=== PATIENT | female | born 1930 | race Caucasian/White ===

== ENCOUNTER → 2016-11-19 | Outpatient (CLI) | payer OTHER, MEDICARE | LOC: MMPC 09:00 | PROVIDERS: ATTEND Nurse Practitioner Family | DX: E11.9 Type 2 diabetes mellitus without complications (principal); E78.5 Hyperlipidemia, unspecified; I10 Essential (primary) hypertension | CPT/HCPCS: 99214; G0463 ==

== ENCOUNTER → 2016-11-23 | Outpatient (CLI) | payer OTHER, MEDICARE ==
[2016-11-23 13:01] LABS: HEMATOCRIT 44.7 % (37.0-47.0); HEMOGLOBIN 14.1 g/dL (12.0-16.0); MEAN CORPUSCULAR HEMOGLOBIN 28.1 PG (27-31); MEAN CORPUSCULAR HGB CONC 31.5 g/dL (33-37); MEAN CORPUSCULAR VOLUME 89.2 FL (81-99); MEAN PLATELET VOLUME 9.3 FL (7.4-12.2); RED BLOOD COUNT 5.01 10^6/uL (4.20-5.40)
[2016-11-23 13:03] LABS: BUN/CREATININE RATIO 26.25 (6-20); CALCIUM 9.8 mg/dL (8.7-10.7); CHOL/HDL RATIO 2.21 RATIO (0-4.0); LDL CHOLESTEROL,CALCULATED 55.8 mg/dL; SERUM ALBUMIN 3.8 g/dL (3.5-4.8)
== END ==
LOC: LAB 08:24
PROVIDERS: ATTEND Family Medicine
DX: E11.9 Type 2 diabetes mellitus without complications (principal); E78.5 Hyperlipidemia, unspecified; I10 Essential (primary) hypertension
CPT/HCPCS: 80053; 80061; 83036; 84443; 85027

== ENCOUNTER → 2017-02-12 | Outpatient (CLI) | payer OTHER, MEDICARE | LOC: MOB LAB 13:17 | DX: N39.0 Urinary tract infection, site not specified (principal); R82.99 Other abnormal findings in urine | CPT/HCPCS: 87077; 87088; 87186 ==